=== PATIENT | female | born 1955 | race Caucasian/White ===

== ENCOUNTER 2016-08-13 20:07 | Emergency (ER) | payer BC ==
[~2016-08-13 20:07] MED LIST: ANTI-DIARRHEAL2 M1 PO; CALCIUM 600 + D1 TA1 PO; LEVSIN0.125 M2 SL; TRAMADOL HCL50 M1 PO
[2016-08-13] MEDS ORDERED: MOBIC (20:22)
[2016-08-13] MEDS ORDERED: ASPIRIN81 M2 (20:23)
[2016-08-13] MEDS ORDERED: NEURONTIN100 MG (20:23)
== END 2016-08-13 21:13 | disposition home or self-care (01) ==
LOC: SED 20:07
DX: S61.214A Laceration without foreign body of right ring finger without damage to nail, initial encounter (principal); Z87.891 Personal history of nicotine dependence; W45.8XXA Other foreign body or object entering through skin, initial encounter; Y92.009 Unspecified place in unspecified non-institutional (private) residence as the place of occurrence of the external cause
CPT/HCPCS: 90471; 99283

== ENCOUNTER 2016-08-19 16:57 | Emergency (ER) | payer BC ==
[~2016-08-19 16:57] MED LIST changes: +ASPIRIN81 M2; +MOBIC; +NEURONTIN100 MG
== END 2016-08-19 17:28 | disposition home or self-care (01) ==
LOC: SED 16:57
DX: Z48.01 Encounter for change or removal of surgical wound dressing (principal); Z79.899 Other long term (current) drug therapy
CPT/HCPCS: 99281